=== PATIENT | male | born 1995 | race Caucasian/White ===

== ENCOUNTER 2019-02-12 14:26 | Emergency (ER) | payer OTHER, SELFPAY ==
[2019-02-12 14:38] VITALS: BP 131/99; PULSE 100; RESP 18; TEMP 36.4; O2SAT 99; BMI 30.4
[2019-02-12] MEDS: LIDOCAINE 1% W/EPI 1 ML SUBCUT (16:07)
[2019-02-12 16:39] VITALS: BP 129/88; PULSE 92; RESP 17; O2SAT 98
[2019-02-12] MEDS: IBUPROFEN 400 MG TABLET 800 MG PO (16:56)
[2019-02-12] MEDS: cephALEXin 250 MG CAPSULE 500 MG PO (16:56)
--- NOTE | 2019-02-12 17:48 | ED.SKABFB ---
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 Patient noticed a small red bump on right groin on Sunday which has progressively got worsen since Sunday morning. Patient denies fever, chills, nausea or vomiting. Patient reports very painful. Patient was referred by [facility] to ED for on assessment and treatment. Patient had left-sided groin abscess about 2 years ago which had to be I&D and packed. Patient does shave his groin. Patient denies chronic medical problems including diabetes. Related Data Home Medications Medication Instructions Recorded Confirmed acetaminophen [Tylenol] 650 mg PO Q4-6H PRN 02/12/19 02/12/19 Previous Rx's Medication Instructions Recorded cephalexin [Keflex] 500 mg PO Q6H 10 Days #40 cap 02/12/19 tramadol 50 - 100 mg PO Q12H PRN #10 tab 02/12/19 Allergies Allergy/AdvReac Type Severity Reaction Status Date / Time Sulfa (Sulfonamide Allergy Unknown Verified 02/12/19 14:42 Antibiotics) Review of Systems <CONCEPCIÓN Chance - Last Filed: 02/12/19 22:13> Review of Systems Narrative: General: Denies fever, chills, fatigue, malaise, sweats. HEENT: Denies sinus pain, ear pain, sore throat, difficulty swallowing, dizziness. Respiratory: Denies dyspnea, cough, wheezing, hemoptysis, sputum. Cardiovascular: Denies chest pain, palpitations, orthopnea, edema. Gastrointestinal: Denies nausea, vomiting, abdominal pain, diarrhea, constipation, melena. : Denies dysuria, frequency, incontinence, hematuria, urinary retention. Musculoskeletal: Denies weakness, joint pain or bony pain. Skin: See HPI Neurologic: Denies weakness, headache, numbness, change in speech, confusion, seizures, incoordination. Psychiatric: No concerning psychosocial issues. 12-point review of systems is negative except for those stated above. Patient History <CONCEPCIÓN Chance - Last Filed: 02/12/19 22:13> Medical History Abscess of left groin (Acute) Surgical History No pertinent past surgical history (Acute) Social History Smoking Status: Former smoker Smoking Status: Former smoker tobacco type: vaping alcohol intake frequency: a few times a month Substance Use Type: does not use Exam <CONCEPCIÓN Chance - Last Filed: 02/12/19 22:13> Narrative Exam Narrative: General appearance: well developed, well nourished, in no acute distress. Head: normocephalic, atraumatic, no scalp lesions, non-tender. ENT: Bilateral auditory canals and tympanic membranes clear. Hearing grossly intact. Nose without bleeding, purulent discharge, septal hematoma or deviation. Turbinate without erythema or swelling. Facial sinuses nontender to palpate. Mucous membrane moist, no mucosal lesion. Throat without erythema, tonsillar hypertrophy or exudate. Uvula in midline, airway patent. Neck/Thyroid: neck supple, full range of motion, no visible masses or meningeal signs. No JVD, non-tender without lymphadenopathy. Heart: no clubbing, no cyanosis, no edema. S1 and S2 normal. RRR w/o murmurs, clicks, or bruits. Lungs: Breathing even and unlabored. No stridor. No accessory muscles used. Able to speak in full sentences. Chest: normal shape and expansion. Abdomen: non-obese, non-distended. Neurologic: alert and oriented. 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 Psych: good eye contact, normal affect. Initial Vital Signs Initial Vital Signs: Vital Signs Temperature 97.6 F 02/12/19 14:38 Pulse Rate 100 H 02/12/19 14:38 Respiratory Rate 18 02/12/19 14:38 Blood Pressure 131/99 H 02/12/19 14:38 Pulse Oximetry 99 02/12/19 14:38 Skin General: erythema, fluctuance, hypertrophy, induration, warm and other (Very tender to palpate) Lesions: lesion noted (Right groin) <Yara Zimmer DO - Last Filed: 02/17/19 08:38> Initial Vital Signs Initial Vital Signs: Vital Signs Temperature 97.6 F 02/12/19 14:38 Pulse Rate 100 H 02/12/19 14:38 Respiratory Rate 18 02/12/19 14:38 Blood Pressure 131/99 H 02/12/19 14:38 Pulse Oximetry 99 02/12/19 14:38 Procedures <CONCEPCIÓN Chance - Last Filed: 02/12/19 22:13> Abscess I/D I&D #1: Site: lower extremity (Right groin) Side (if applicable): right Local Anesthetic: lidocaine 1% and with epi Amount of anesthesia used (mL): 5 Technique: incised with #11 blade Amount of fluid expressed (mL): 3 Irrigation: Yes Packing used?: plain Scores <CONCEPCIÓN Chance - Last Filed: 02/12/19 22:13> GCS [place] coma scale eye opening: Spontaneous Kelly coma scale verbal response: Orientated Kelly coma scale motor response: Obey commands Let[place]worth coma scale total score: 15 Course <CONCEPCIÓN Chance - Last Filed: 02/12/19 22:13> Orders Ordered: Discontinued Medications Cephalexin HCl (Keflex) 500 mg PO NOW ONE Stop: 02/12/19 16:34 Last Admin: 02/12/19 16:56 Dose: 500 mg Documented by: HARRY Ibuprofen (Advil) 800 mg PO NOW ONE Stop: 02/12/19 16:34 Last Admin: 02/12/19 16:56 Dose: 800 mg Documented by: HARRY Lidocaine/Epinephrine (Xylocaine 1% W/Epi) 1 ml SUBCUT NOW ONE Stop: 02/12/19 15:53 Last Admin: 02/12/19 16:07 Dose: 1 ml Documented by: BRISA Vital Signs Vital signs: Vital Signs - 8 hr 02/12/19 14:38 02/12/19 16:39 Temperature 97.6 F Pulse Rate 100 H 92 H Respiratory Rate 18 17 Blood Pressure 131/99 H Blood Pressure [Right Arm] 129/88 Pulse Oximetry 99 98 <Yara Zimmer DO - Last Filed: 02/17/19 08:38> Orders Ordered: Discontinued Medications Cephalexin HCl (Keflex) 500 mg PO NOW ONE Stop: 02/12/19 16:34 Last Admin: 02/12/19 16:56 Dose: 500 mg Documented by: HARRY Ibuprofen (Advil) 800 mg PO NOW ONE Stop: 02/12/19 16:34 Last Admin: 02/12/19 16:56 Dose: 800 mg Documented by: HARRY Lidocaine/Epinephrine (Xylocaine 1% W/Epi) 1 ml SUBCUT NOW ONE Stop: 02/12/19 15:53 Last Admin: 02/12/19 16:07 Dose: 1 ml Documented by: BRISA Vital Signs Vital signs: Vital Signs - 8 hr 02/12/19 14:38 02/12/19 16:39 Temperature 97.6 F Pulse Rate 100 H 92 H Respiratory Rate 18 17 Blood Pressure 131/99 H Blood Pressure [Right Arm] 129/88 Pulse Oximetry 99 98 MDM - Skin/Abscess/Foreign Bdy <CONCEPCIÓN Chance - Last Filed: 02/12/19 22:13> Differential Diagnosis Differential diagnosis: Likely abscess of skin or subcutaneous tissue and cellulitis Medical Records Attestation: I reviewed the patient's medical records. MDM Narrative Medical decision making narrative: This is a 23 year old active [employer] personnel who presents to ED after he was referred from [facility] for about 7 cm right groin abscess evaluation and treatment. Patient denies constitutional symptoms. Right groin has fluctuance with induration, very tender to palpate, edema, and erythema. Right groin has already started draining with purulent and sanguinous discharge during assessment and palpation. The affected site was locally anesthetized, small incisions were made and express a drained purulent discharge. Please see procedural note. Wound culture is pending. Patient was medicated with Keflex 500 mg and Rx for q.i.d. dose for 10 days provided for coverage for cellulitis with abscess. Patient provided with tramadol for pain management and discussed narcotic medication precautions. Patient advised to use warm pack frequently next couple of days to help with drainage. Return precautions were discussed with the patient. Work off note provided for 2 days. Patient advised to follow up with PCP in 1-2 days for reassessment and wound care. Patient verbalized understanding and agrees with the treatment plan. Discharge Plan Departure Patient Disposition: Home Clinical Impression: Abscess of skin or subcutaneous tissue Qualifiers: Site of cutaneous abscess: extremity Site of cutaneous abscess of extremity: lower extremity Laterality: right Qualified Code(s): L02.415 - Cutaneous abscess of right lower limb Cellulitis Qualifiers: Site of cellulitis: extremity Site of cellulitis of extremity: lower extremity Laterality: right Qualified Code(s): L03.115 - Cellulitis of right lower limb Discharge Date/Time: 02/12/19 17:16 Instructions: DI for Cellulitis -- Adult, DI for Skin Abscess Activity Restrictions/Additional Instructions: You have been diagnosed with [right groin abscess and cellulitis. The area has been I&D and packed with plain packing material. ]. What to do: *Take your medications as directed. You were medicated with 1st dose of Keflex while in the ED. please take tramadol for severe pain. This may cause drowsiness so please take precaution such as not driving, drinking alcohol or operating heavy equipments. You can take [id number] Tylenol up to 4000 mg in 24 hour period. Ibuprofen 600-800 mg 3 times a day with food for pain and inflammation. Please continue with Keflex 4 times a day for next 10 days. *Follow up with your primary care provider in 1-2 days, call for an appointment. Let them know you were seen in the ED and that we asked you to be seen in follow up and repacking and wound care. *Return to ED if you have any new, worsening, or concerning symptoms, such as [fever, chills, unable to tolerate fluids, chest pain, breathing difficulty, any acute concerns. Work off note has been provided.]. Prescriptions: New cephalexin [Keflex] 500 mg capsule 500 mg PO Q6H 10 Days Qty: 40 RF: 0 tramadol 50 mg tablet 50 - 100 mg PO Q12H PRN (Reason: pain) Qty: 10 RF: 0 No Action acetaminophen [Tylenol] 325 mg Tablet 650 mg PO Q4-6H PRN (Reason: pain) RF: 0 Referrals: [facility] [Outside] Stand Alone Forms: Work Release Note
== END 2019-02-12 17:16 | disposition home or self-care (01) ==
PROVIDERS: Emergency Provider Nurse Practitioner Family
DX: L02.415 Cutaneous abscess of right lower limb (principal); L03.115 Cellulitis of right lower limb
CPT/HCPCS: 10060; 87070; 87075; 87077; 87147; 87186; 87205; 99283; 99284

== ENCOUNTER 2019-03-04 19:28 | Emergency (ER) | payer OTHER, SELFPAY ==
[2019-03-04 19:30] VITALS: BP 134/92; PULSE 75; RESP 14; TEMP 36.9; O2SAT 99; BMI 30.4
--- NOTE | 2019-03-04 19:45 | PC.NURSE ---
Pt given food and beverage with warm blankeet
[2019-03-04 19:57] LABS: Add Manual Diff / Slide Review NO; Basophils Absolute Auto 100 /uL (0-100); Basophils Percent Auto 1.4 % (0-2); Eosinophils Absolute Auto 100 /uL (0-450); Eosinophils Percent Auto 2.1 % (2-4); Hematocrit 44.8 % (41-53); Hemoglobin 15.5 g/dL (13.5-17.5); Lymphocytes Absolute Auto 2200 /uL (1100-4500); Lymphocytes Percent Auto 39.8 % (25-40); Mean Corpuscular HGB Conc 34.6 % (30-36); Mean Corpuscular Volume 80.8 fL (80-100); Monocytes Absolute Auto 400 /uL (0-900); Monocytes Percent Auto 6.9 % (3-14); Neutrophils Absolute Auto 2800 /uL (1500-7000); Neutrophils Percent Auto 49.8 % (50-75); Platelet Count 323 X10^3/uL (150-400); Red Blood Cell Count 5.55 X10^6/uL (4.5-5.9); Red Cell Distribution Width 12.8 % (11.6-14.8); White Blood Cell Count 5.6 X10^3/uL (4.5-11.0)
--- NOTE | 2019-03-04 20:11 | ED_ITS ---
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 Patient has no prior medical history. No prior mental health history. Is not . No kids. Lives on his own. Has been in the [employer] for the past several years. He states that for the past year so he has had some depression. Does not attributed to anything specific. He he states that he has times where these depression symptoms are worse than others. He states he has had fleeting thoughts of suicide in the past. Specifically jumping [place]. He states that he never seriously considered doing it however over the past several days/weeks he feels that these suicidal/depressive thoughts have become more invasive. He states he spends most of his day thinking about them or trying to not think about them. He has no specific plan currently. Denies any drug or alcohol use. Went to his medical imaging technician today for evaluation of a was initially insomnia however upon further questioning patient did express to his medical imaging technician about the suicidal thoughts. Patient arrives today with a command used equipment sales representative however he is voluntary. He states that he feels very concerned about these thoughts. He states that he just wants to feel ?normal? again. Related Data Home Medications Medication Instructions Recorded Confirmed acetaminophen [Tylenol] 650 mg PO Q4-6H PRN 02/12/19 02/12/19 Previous Rx's Medication Instructions Recorded tramadol 50 - 100 mg PO Q12H PRN #10 tab 02/12/19 Allergies Allergy/AdvReac Type Severity Reaction Status Date / Time Sulfa (Sulfonamide Allergy Unknown Verified 03/04/19 19:53 Antibiotics) Review of Systems Constitutional Constitutional: Denies headache(s) ENT Ears, Nose, Mouth, and Throat: Denies headache(s) Cardiovascular Cardiovascular: Denies chest pain and Denies dyspnea Respiratory Respiratory: Denies dyspnea Gastrointestinal Gastrointestinal: Denies abdominal pain Musculoskeletal Musculoskeletal: Denies myalgias and Denies arthralgias Integumentary/Breasts Skin/Breast: Denies lesions and Denies rash Neurologic Neurologic: Denies behavioral changes and Denies headache(s) Psychiatric Psychiatric: Denies behavioral changes, Reports depression, Reports hopelessness and Reports suicidal ideation Hematologic/Lymphatic Hematologic/Lymphatic: Denies easy bleeding and Denies easy bruising Patient History Medical History Abscess of left groin (Acute) Social History Smoking Status: Former smoker Smoking Status: Former smoker tobacco type: vaping alcohol intake frequency: holidays/special occasions only Substance Use Type: does not use Exam Initial Vital Signs Initial Vital Signs: Vital Signs Temperature 98.4 F 03/04/19 19:30 Pulse Rate 75 03/04/19 19:30 Respiratory Rate 14 03/04/19 19:30 Blood Pressure 134/92 H 03/04/19 19:30 Pulse Oximetry 99 03/04/19 19:30 Const General: cooperative and comfortable Limitations: mental status not altered HENMT Head: normal to inspection and normocephalic Resp Effort & Inspection: normal respiratory effort Auscultation: clear to auscultation bilaterally Cardio Rate: regular rate Rhythm: regular rhythm GI Inspection: non-distended Palpation: soft Skin Lesions: no lesions Rashes: no rashes Neuro General: alert, awake and oriented x3 Extrem General: normal to inspection and capillary refill normal Psych Appearance: grossly normal and well kempt Mental Status: other Speech and Movement: speech and movement normal Mood: No angry and other Affect: sad and blunted Attitude: cooperative Thought Process: normal Thought Content: suicidality Course Orders Ordered: ED Orders 03/04/19 19:50 Acetaminophen Stat Complete Blood Count AUTO DIFF Stat Comprehensive Metabolic Panel Stat Ethanol (ETOH) Stat Lipase Stat Salicylate Stat Thyroid Stimulating Hormone Stat 03/04/19 20:27 Urine Drug Screen, Rapid Stat Vital Signs Vital signs: Vital Signs - 8 hr 03/04/19 19:30 Temperature 98.4 F Pulse Rate 75 Respiratory Rate 14 Blood Pressure 134/92 H Pulse Oximetry 99 MDM - Psych Lab Data Attestation: I reviewed the patient's lab results. Result diagrams: 03/04/19 19:50 03/04/19 19:50 Labs: Lab Results 03/04/19 03/04/19 03/04/19 Range/Units 19:50 19:50 19:50 WBC 5.6 (4.5-11.0) X10^3/uL RBC 5.55 (4.5-5.9) X10^6/uL Hgb 15.5 (13.5-17.5) g/dL Hct 44.8 (41-53) % MCV 80.8 (80-100) fL MCH 28.0 (26-34) PG MCHC 34.6 (30-36) % RDW 12.8 (11.6-14.8) % Plt Count 323 (150-400) X10^3/uL Neut % (Auto) 49.8 L (50-75) % Lymph % (Auto) 39.8 (25-40) % [place] % (Auto) 6.9 (3-14) % Eos % (Auto) 2.1 (2-4) % Baso % (Auto) 1.4 (0-2) % Neut # (Auto) 2800 (1154-6702) /uL Lymph # (Auto) 2200 (4901-8754) /uL [place] # (Auto) 400 (0-900) /uL Eos # (Auto) 100 (0-450) /uL Baso # (Auto) 100 (0-100) /uL Sodium 142 (137-145) mmol/L Potassium 4.1 (3.4-5.1) mmol/L Chloride 101 (98-107) mmol/L Carbon Dioxide 28 (22-32) mmol/L BUN 15 (9-20) mg/dL Creatinine 1.10 (0.66-1.25) mg/dL Estimated GFR > 60.0 (>60) mL/min BUN/Creatinine Ratio 13.6 (6-22) Glucose 91 (70-100) mg/dL Calcium 10.1 (8.4-10.2) mg/dL Total Bilirubin 0.9 (0.2-1.3) mg/dL AST 89 H (17-59) IU/L ALT 256 H (<50) IU/L Alkaline Phosphatase 88 (38-126) U/L Total Protein 8.7 H (6.3-8.2) g/dL Albumin 4.9 (3.5-5.0) g/dL Globulin 3.8 (1.7-4.1) g/dL Albumin/Globulin Ratio 1.3 (1.0-2.8) Lipase 70 (23-300) U/L TSH 2.88 (0.47-4.68) uIU/mL Salicylates < 1.0 (<20) mg/dL U Opiates 300ng/mL cut (Negative) Ur Oxycodone Screen (Negative) Urine Methadone Screen (Negative) Acetaminophen < 10 L (10-30) ug/mL Ur Barbiturates Screen (Negative) U Tricyclic Antidepress (Negative) Ur Phencyclidine Scrn (Negative) Ur Amphetamines Screen (Negative) U Methamphetamines Scrn (Negative) Ur MDMA Scrn (Ecstasy) (Negative) U Benzodiazepines Scrn (Negative) Urine Cocaine Screen (Negative) U Marijuana (THC) Screen (Negative) Ethyl Alcohol < 10 ( - 10) mg/dL 03/04/19 Range/Units 20:27 WBC (4.5-11.0) X10^3/uL RBC (4.5-5.9) X10^6/uL Hgb (13.5-17.5) g/dL Hct (41-53) % MCV (80-100) fL MCH (26-34) PG MCHC (30-36) % RDW (11.6-14.8) % Plt Count (150-400) X10^3/uL Neut % (Auto) (50-75) % Lymph % (Auto) (25-40) % [place] % (Auto) (3-14) % Eos % (Auto) (2-4) % Baso % (Auto) (0-2) % Neut # (Auto) (6411-3514) /uL Lymph # (Auto) (6302-9959) /uL [place] # (Auto) (0-900) /uL Eos # (Auto) (0-450) /uL Baso # (Auto) (0-100) /uL Sodium (137-145) mmol/L Potassium (3.4-5.1) mmol/L Chloride (98-107) mmol/L Carbon Dioxide (22-32) mmol/L BUN (9-20) mg/dL Creatinine (0.66-1.25) mg/dL Estimated GFR (>60) mL/min BUN/Creatinine Ratio (6-22) Glucose (70-100) mg/dL Calcium (8.4-10.2) mg/dL Total Bilirubin (0.2-1.3) mg/dL AST (17-59) IU/L ALT (<50) IU/L Alkaline Phosphatase (38-126) U/L Total Protein (6.3-8.2) g/dL Albumin (3.5-5.0) g/dL Globulin (1.7-4.1) g/dL Albumin/Globulin Ratio (1.0-2.8) Lipase (23-300) U/L TSH (0.47-4.68) uIU/mL Salicylates (<20) mg/dL U Opiates 300ng/mL cut Negative (Negative) Ur Oxycodone Screen Negative (Negative) Urine Methadone Screen Negative (Negative) Acetaminophen (10-30) ug/mL Ur Barbiturates Screen Negative (Negative) U Tricyclic Antidepress Negative (Negative) Ur Phencyclidine Scrn Negative (Negative) Ur Amphetamines Screen Negative (Negative) U Methamphetamines Scrn Negative (Negative) Ur MDMA Scrn (Ecstasy) Negative (Negative) U Benzodiazepines Scrn Negative (Negative) Urine Cocaine Screen Negative (Negative) U Marijuana (THC) Screen Negative (Negative) Ethyl Alcohol ( - 10) mg/dL MDM Narrative Medical decision making narrative: Patient is medically cleared. Discussed the case with Dr. Travis at [facility] who accepts the patient in transfer. The patient is voluntary. His command is with him. He will be discharged to his [facility] care to be transferred by private vehicle. Discharge Plan Departure Patient Disposition: [facility] Clinical Impression: Depression Qualifiers: Depression Type: unspecified Qualified Code(s): F32.9 - Major depressive disorder, single episode, unspecified Prescriptions: No Action acetaminophen [Tylenol] 325 mg Tablet 650 mg PO Q4-6H PRN (Reason: pain) RF: 0 tramadol 50 mg tablet 50 - 100 mg PO Q12H PRN (Reason: pain) Qty: 10 RF: 0
[2019-03-04 20:18] LABS: Acetaminophen < 10 ug/mL (10-30); Alanine Aminotransferase 256 IU/L (<50); Albumin 4.9 g/dL (3.5-5.0); Albumin Globulin Ratio 1.3 (1.0-2.8); Alkaline Phosphatase 88 U/L (38-126); Aspartate Aminotransferase 89 IU/L (17-59); BUN Creatinine Ratio 13.6 (6-22); Bilirubin Total 0.9 mg/dL (0.2-1.3); Blood Urea Nitrogen 15 mg/dL (9-20); Calcium 10.1 mg/dL (8.4-10.2); Carbon Dioxide 28 mmol/L (22-32); Chloride 101 mmol/L (98-107); Estimated Glomerular Filt Rate > 60.0 mL/min (>60); Ethanol (ETOH) < 10 mg/dL; Globulin 3.8 g/dL (1.7-4.1); Glucose 91 mg/dL (70-100); HEMOLYSIS 35 (0-50); Lipase 70 U/L (23-300); Potassium 4.1 mmol/L (3.4-5.1); Salicylate < 1.0 mg/dL (<20); Sodium 142 mmol/L (137-145); Total Protein 8.7 g/dL (6.3-8.2)
[2019-03-04 20:34] LABS: Ur Creatinine Normal (Normal); Ur Specific Gravity Normal (Normal); Urine pH Normal (Normal)
[2019-03-04 20:35] LABS: UR Morphine/Opiate cutoff 300 Negative (Negative); Urine Amphetamines Negative (Negative); Urine Barbiturates Negative (Negative); Urine Benzodiazepines Negative (Negative); Urine Cocaine Negative (Negative); Urine MDMA Negative (Negative); Urine Methadone Negative (Negative); Urine Methamphetamines Negative (Negative); Urine Oxycodone Negative (Negative); Urine Phencyclidine Negative (Negative); Urine Tetrahydrocannabinol Negative (Negative); Urine Tricyclic Antidepressant Negative (Negative)
[2019-03-04 20:53] LABS: Thyroid Stimulating Hormone 2.88 uIU/mL (0.47-4.68)
[2019-03-04 22:09] VITALS: BP 131/89; PULSE 67; RESP 16; TEMP 37; O2SAT 99
== END 2019-03-04 22:09 | disposition short-term general hospital (02) ==
PROVIDERS: Emergency Provider Emergency Medicine
DX: F32.9 Major depressive disorder, single episode, unspecified (principal)
CPT/HCPCS: 36415; 80053; 80305; 80320; 80329; 83690; 84443; 85025; 99283; 99284; G0480

== ENCOUNTER 2019-03-27 13:45 | Emergency (ER) | payer OTHER, SELFPAY ==
[2019-03-27 13:52] VITALS: BP 139/96; PULSE 85; RESP 14; TEMP 36.5; O2SAT 98; BMI 28.8
--- NOTE | 2019-03-27 14:27 | PC.NURSE ---
ANTONIA Logan at bedside
--- NOTE | 2019-03-27 14:33 | ED_ITS ---
HPI - Psych <KELLI Boyd - Last Filed: 03/27/19 19:36> General Chief Complaint: Psychiatric Symptoms Stated Complaint: Suicidal ideation Time Seen by Provider: 03/27/19 14:12 Source: patient Mode of arrival: Ambulatory Limitations: no limitations History of Present Illness HPI Narrative: The patient is a 23-year-old male former smoker with history of depression who presents with a chief complaint suicidal ideations. He states he is feeling suicidal as he is having trouble [place] He was at this facility approximately 1 month ago similar complaints. He states he is having passive thoughts about [place], and was today on his way to an appointment. He was not sure if he should go to the appointment or go kill himself. He does not take any antidepressants, he states he is drinking more alcohol lately, no drug use. No hallucinations. Related Data Home Medications Medication Instructions Recorded Confirmed acetaminophen [Tylenol] 650 mg PO Q4-6H PRN 02/12/19 03/27/19 melatonin 3 mg PO BEDTIME PRN 03/27/19 03/27/19 Allergies Allergy/AdvReac Type Severity Reaction Status Date / Time Sulfa (Sulfonamide Allergy Unknown Verified 03/27/19 13:52 Antibiotics) Review of Systems <KELLI Boyd - Last Filed: 03/27/19 19:36> Review of Systems Narrative: GENERAL: Denies chills, fatigue, malaise, fever, sweats. HEENT: Denies sinus pain, ear pain, sore throat, difficulty swallowing, dizz iness. RESPIRATORY: Denies dyspnea, cough, wheezing, hemoptysis, sputum. CARDIOVASCULAR: Denies chest pain, palpitations, orthopnea, edema, GASTROINTESTINAL: Denies nausea, vomiting, abdominal pain, diarrhea, constipation, melena. : Denies dysuria, frequency, incontinence, hematuria, urinary retention. MUSCULOSKELETAL: denies weakness, joint pain, or bony pain SKIN: Denies rash, skin lesions, or other NEUROLOGIC: Denies weakness, headache, numbness, change in speech, confusion, seizures, incoordination. PSYCHIATRIC: See HPI 12 point review of systems is negative except for those stated above Patient History <KELLI Boyd - Last Filed: 03/27/19 19:36> Social History Smoking Status: Former smoker Smoking Status: Former smoker tobacco type: vaping alcohol intake frequency: 3 or more drinks per day Alcohol type: beer Substance Use Type: does not use Exam <CRYSTAL Boyd - Last Filed: 03/27/19 19:36> Narrative Exam Narrative: GENERAL: This is a well-nourished, well-developed patient, in no acute distress HEAD: Atraumatic. Normocephalic. No temporal or scalp tenderness. EYES: Pupils equal round and reactive. Extraocular motions intact. No scleral icterus. No injection or drainage. ENT: Nose without bleeding, purulent drainage or septal hematoma. Throat without erythema, tonsillar hypertrophy or exudate. Uvula midline. Airway patent. NECK: Trachea midline. No JVD or lymphadenopathy. Supple, nontender, no meningeal signs. CARDIOVASCULAR: Regular rate and rhythm RESPIRATORY: No cough. No increased respiratory effort. No accessory muscle u se. EXTREMITIES: No clubbing, cyanosis, or edema. No joint tenderness, effusion, or edema noted. BACK: Nontender without deformity or crepitance. No flank tenderness. NEURO: AOx3. Withdrawn. Complaining suicidal ideations. SKIN: No rash or erythema. Initial Vital Signs Initial Vital Signs: Vital Signs Temperature 97.7 F 03/27/19 13:52 Pulse Rate 85 03/27/19 13:52 Respiratory Rate 14 03/27/19 13:52 Blood Pressure 139/96 H 03/27/19 13:52 Pulse Oximetry 98 03/27/19 13:52 <Puma Cardenas DO - Last Filed: 03/27/19 19:38> Initial Vital Signs Initial Vital Signs: Vital Signs Temperature 97.7 F 03/27/19 13:52 Pulse Rate 85 03/27/19 13:52 Respiratory Rate 14 03/27/19 13:52 Blood Pressure 139/96 H 03/27/19 13:52 Pulse Oximetry 98 03/27/19 13:52 Course <CRYSTAL Boyd - Last Filed: 03/27/19 19:36> Orders Ordered: ED Orders 03/27/19 14:12 Consult to DIRECTOR OF STRATEGIC MARKETING - Waste Treatment Operator Urgent 03/27/19 14:55 Acetaminophen Stat Complete Blood Count AUTO DIFF Stat Comprehensive Metabolic Panel Stat Ethanol (ETOH) Stat Salicylate Stat Thyroid Stimulating Hormone Stat 03/27/19 16:50 Urine Drug Screen, Rapid Stat Vital Signs Vital signs: Vital Signs - 8 hr 03/27/19 13:52 03/27/19 17:29 Temperature 97.7 F Pulse Rate 85 71 Respiratory Rate 14 16 Blood Pressure 139/96 H Blood Pressure [Left Arm] 138/91 H Pulse Oximetry 98 98 <Puma Cardenas DO - Last Filed: 03/27/19 19:38> Orders Ordered: ED Orders 03/27/19 14:12 [place] [facility] [place] Waste Treatment Operator Urgent 03/27/19 14:55 Acetaminophen Stat Complete Blood Count AUTO DIFF Stat Comprehensive Metabolic Panel Stat Ethanol (ETOH) Stat Salicylate Stat Thyroid Stimulating Hormone Stat 03/27/19 16:50 Urine Drug Screen, Rapid Stat Vital Signs Vital signs: Vital Signs - 8 hr 03/27/19 13:52 03/27/19 17:29 Temperature 97.7 F Pulse Rate 85 71 Respiratory Rate 14 16 Blood Pressure 139/96 H Blood Pressure [Left Arm] 138/91 H Pulse Oximetry 98 98 MDM - Psych <CHERELLE Boyd-BC - Last Filed: 03/27/19 19:36> Lab Data Result diagrams: 03/27/19 14:55 03/27/19 14:55 Labs: Lab Results 03/27/19 03/27/19 03/27/19 Range/Units 14:55 14:55 14:55 WBC 5.2 (4.5-11.0) X10^3/uL RBC 5.63 (4.5-5.9) X10^6/uL Hgb 15.8 (13.5-17.5) g/dL Hct 45.2 (41-53) % MCV 80.3 (80-100) fL MCH 28.1 (26-34) PG MCHC 35.0 (30-36) % RDW 13.0 (11.6-14.8) % Plt Count 265 (150-400) X10^3/uL Neut % (Auto) 45.4 L (50-75) % Lymph % (Auto) 41.7 H (25-40) % [place] % (Auto) 8.8 (3-14) % Eos % (Auto) 3.2 (2-4) % Baso % (Auto) 0.9 (0-2) % Neut # (Auto) 2400 (3722-6661) /uL Lymph # (Auto) 2200 (9423-2462) /uL [place] # (Auto) 500 (0-900) /uL Eos # (Auto) 200 (0-450) /uL Baso # (Auto) 0 (0-100) /uL Sodium 140 (137-145) mmol/L Potassium 4.1 (3.4-5.1) mmol/L Chloride 101 (98-107) mmol/L Carbon Dioxide 29 (22-32) mmol/L BUN 12 (9-20) mg/dL Creatinine 1.00 (0.66-1.25) mg/dL Estimated GFR > 60.0 (>60) mL/min BUN/Creatinine Ratio 12.0 (6-22) Glucose 88 (70-100) mg/dL Calcium 10.2 (8.4-10.2) mg/dL Total Bilirubin 0.5 (0.2-1.3) mg/dL AST 40 (17-59) IU/L ALT 59 H (<50) IU/L Alkaline Phosphatase 83 (38-126) U/L Total Protein 8.5 H (6.3-8.2) g/dL Albumin 4.9 (3.5-5.0) g/dL Globulin 3.6 (1.7-4.1) g/dL Albumin/Globulin Ratio 1.4 (1.0-2.8) TSH 3.16 (0.47-4.68) uIU/mL Salicylates < 1.0 (<20) mg/dL U Opiates 300ng/mL cut (Negative) Ur Oxycodone Screen (Negative) Urine Methadone Screen (Negative) Acetaminophen < 10 L (10-30) ug/mL Ur Barbiturates Screen (Negative) U Tricyclic Antidepress (Negative) Ur Phencyclidine Scrn (Negative) Ur Amphetamines Screen (Negative) U Methamphetamines Scrn (Negative) Ur MDMA Scrn (Ecstasy) (Negative) U Benzodiazepines Scrn (Negative) Urine Cocaine Screen (Negative) U Marijuana (THC) Screen (Negative) Ethyl Alcohol < 10 ( - 10) mg/dL 03/27/19 Range/Units 16:50 WBC (4.5-11.0) X10^3/uL RBC (4.5-5.9) X10^6/uL Hgb (13.5-17.5) g/dL Hct (41-53) % MCV (80-100) fL MCH (26-34) PG MCHC (30-36) % RDW (11.6-14.8) % Plt Count (150-400) X10^3/uL Neut % (Auto) (50-75) % Lymph % (Auto) (25-40) % [place] % (Auto) (3-14) % Eos % (Auto) (2-4) % Baso % (Auto) (0-2) % Neut # (Auto) (0803-5640) /uL Lymph # (Auto) (9626-8207) /uL [place] # (Auto) (0-900) /uL Eos # (Auto) (0-450) /uL Baso # (Auto) (0-100) /uL Sodium (137-145) mmol/L Potassium (3.4-5.1) mmol/L Chloride (98-107) mmol/L Carbon Dioxide (22-32) mmol/L BUN (9-20) mg/dL Creatinine (0.66-1.25) mg/dL Estimated GFR (>60) mL/min BUN/Creatinine Ratio (6-22) Glucose (70-100) mg/dL Calcium (8.4-10.2) mg/dL Total Bilirubin (0.2-1.3) mg/dL AST (17-59) IU/L ALT (<50) IU/L Alkaline Phosphatase (38-126) U/L Total Protein (6.3-8.2) g/dL Albumin (3.5-5.0) g/dL Globulin (1.7-4.1) g/dL Albumin/Globulin Ratio (1.0-2.8) TSH (0.47-4.68) uIU/mL Salicylates (<20) mg/dL U Opiates 300ng/mL cut Negative (Negative) Ur Oxycodone Screen Negative (Negative) Urine Methadone Screen Negative (Negative) Acetaminophen (10-30) ug/mL Ur Barbiturates Screen Negative (Negative) U Tricyclic Antidepress Negative (Negative) Ur Phencyclidine Scrn Negative (Negative) Ur Amphetamines Screen Negative (Negative) U Methamphetamines Scrn Negative (Negative) Ur MDMA Scrn (Ecstasy) Negative (Negative) U Benzodiazepines Scrn Negative (Negative) Urine Cocaine Screen Negative (Negative) U Marijuana (THC) Screen Negative (Negative) Ethyl Alcohol ( - 10) mg/dL Urine Dip Bedside Urine Glucose Negative Bedside Urine Bilirubin - Negative Bedside Urine Ketone - Negative Urine Specific [place] 1.015 Bedside Urine Occult Blood - Negative Bedside Urine pH 6.0 Bedside Urine Protein - Negative Bedside Urine Urobilinogen - Negative Bedside Urine Nitrite - Negative Bedside Urine Leukocytes - Negative Esterase MDM Narrative Medical decision making narrative: The patient is a 23-year-old male who presents for chief complaint of suicidal ideation and thoughts of [place]. He initially presented requesting transfer to [facility] however during his emergency department stay received a call from his CO stating that separation would be approved. He felt much better after this phone call. He was evaluated by nurse keycase assembler, who states that she feels as though the patient is safe to discharge as he is no longer feeling suicidal given his recent phone call. He was able to safety plan, currently denies any with suicidal if he marc. He has a the safety plan, state that his friend Jose Roberto will stay overnight with him. Jose Roberto to confirm this. The patient denies any weapons at his house, states that he will give his bayonet to his friend. He insist that he can be safe at home and will come back to the emergency department if he feels unsafe. He was given crisis contact information. Patient in for and have no questions or concerns upon discharge state understanding return precautions as well as follow-up care. State understanding of safety plan. <Puma Cardenas, DO - Last Filed: 03/27/19 19:38> Lab Data Labs: Lab Results 03/27/19 03/27/19 03/27/19 Range/Units 14:55 14:55 14:55 WBC 5.2 (4.5-11.0) X10^3/uL RBC 5.63 (4.5-5.9) X10^6/uL Hgb 15.8 (13.5-17.5) g/dL Hct 45.2 (41-53) % MCV 80.3 (80-100) fL MCH 28.1 (26-34) PG MCHC 35.0 (30-36) % RDW 13.0 (11.6-14.8) % Plt Count 265 (150-400) X10^3/uL Neut % (Auto) 45.4 L (50-75) % Lymph % (Auto) 41.7 H (25-40) % [place] % (Auto) 8.8 (3-14) % Eos % (Auto) 3.2 (2-4) % Baso % (Auto) 0.9 (0-2) % Neut # (Auto) 2400 (1255-6220) /uL Lymph # (Auto) 2200 (8865-9045) /uL [place] # (Auto) 500 (0-900) /uL Eos # (Auto) 200 (0-450) /uL Baso # (Auto) 0 (0-100) /uL Sodium 140 (137-145) mmol/L Potassium 4.1 (3.4-5.1) mmol/L Chloride 101 (98-107) mmol/L Carbon Dioxide 29 (22-32) mmol/L BUN 12 (9-20) mg/dL Creatinine 1.00 (0.66-1.25) mg/dL Estimated GFR > 60.0 (>60) mL/min BUN/Creatinine Ratio 12.0 (6-22) Glucose 88 (70-100) mg/dL Calcium 10.2 (8.4-10.2) mg/dL Total Bilirubin 0.5 (0.2-1.3) mg/dL AST 40 (17-59) IU/L ALT 59 H (<50) IU/L Alkaline Phosphatase 83 (38-126) U/L Total Protein 8.5 H (6.3-8.2) g/dL Albumin 4.9 (3.5-5.0) g/dL Globulin 3.6 (1.7-4.1) g/dL Albumin/Globulin Ratio 1.4 (1.0-2.8) TSH 3.16 (0.47-4.68) uIU/mL Salicylates < 1.0 (<20) mg/dL U Opiates 300ng/mL cut (Negative) Ur Oxycodone Screen (Negative) Urine Methadone Screen (Negative) Acetaminophen < 10 L (10-30) ug/mL Ur Barbiturates Screen (Negative) U Tricyclic Antidepress (Negative) Ur Phencyclidine Scrn (Negative) Ur Amphetamines Screen (Negative) U Methamphetamines Scrn (Negative) Ur MDMA Scrn (Ecstasy) (Negative) U Benzodiazepines Scrn (Negative) Urine Cocaine Screen (Negative) U Marijuana (THC) Screen (Negative) Ethyl Alcohol < 10 ( - 10) mg/dL 03/27/19 Range/Units 16:50 WBC (4.5-11.0) X10^3/uL RBC (4.5-5.9) X10^6/uL Hgb (13.5-17.5) g/dL Hct (41-53) % MCV (80-100) fL MCH (26-34) PG MCHC (30-36) % RDW (11.6-14.8) % Plt Count (150-400) X10^3/uL Neut % (Auto) (50-75) % Lymph % (Auto) (25-40) % [place] % (Auto) (3-14) % Eos % (Auto) (2-4) % Baso % (Auto) (0-2) % Neut # (Auto) (5295-9961) /uL Lymph # (Auto) (5630-8137) /uL [place] # (Auto) (0-900) /uL Eos # (Auto) (0-450) /uL Baso # (Auto) (0-100) /uL Sodium (137-145) mmol/L Potassium (3.4-5.1) mmol/L Chloride (98-107) mmol/L Carbon Dioxide (22-32) mmol/L BUN (9-20) mg/dL Creatinine (0.66-1.25) mg/dL Estimated GFR (>60) mL/min BUN/Creatinine Ratio (6-22) Glucose (70-100) mg/dL Calcium (8.4-10.2) mg/dL Total Bilirubin (0.2-1.3) mg/dL AST (17-59) IU/L ALT (<50) IU/L Alkaline Phosphatase (38-126) U/L Total Protein (6.3-8.2) g/dL Albumin (3.5-5.0) g/dL Globulin (1.7-4.1) g/dL Albumin/Globulin Ratio (1.0-2.8) TSH (0.47-4.68) uIU/mL Salicylates (<20) mg/dL U Opiates 300ng/mL cut Negative (Negative) Ur Oxycodone Screen Negative (Negative) Urine Methadone Screen Negative (Negative) Acetaminophen (10-30) ug/mL Ur Barbiturates Screen Negative (Negative) U Tricyclic Antidepress Negative (Negative) Ur Phencyclidine Scrn Negative (Negative) Ur Amphetamines Screen Negative (Negative) U Methamphetamines Scrn Negative (Negative) Ur MDMA Scrn (Ecstasy) Negative (Negative) U Benzodiazepines Scrn Negative (Negative) Urine Cocaine Screen Negative (Negative) U Marijuana (THC) Screen Negative (Negative) Ethyl Alcohol ( - 10) mg/dL Urine Dip Bedside Urine Glucose Negative Bedside Urine Bilirubin - Negative Bedside Urine Ketone - Negative Urine Specific [place] 1.015 Bedside Urine Occult Blood - Negative Bedside Urine pH 6.0 Bedside Urine Protein - Negative Bedside Urine Urobilinogen - Negative Bedside Urine Nitrite - Negative Bedside Urine Leukocytes - Negative Esterase Discharge Plan Departure Patient Disposition: Home Clinical Impression: Suicidal ideation Discharge Date/Time: 03/27/19 18:07 Instructions: DI for Depression -- Adult, DI for Suicidal Ideation-Adult Activity Restrictions/Additional Instructions: Please remember your safety plan. Jose Roberto is to spend the night with you. If you feel suicidal, please follow your safety plan and speak with Jose Roberto. We have also given you crisis hotline information, see you can call them. Please come back to the emergency department if you have any acute suicidal thoughts, plans to hurt yourself or any acute concerns Please go to your counseling appointment at 10:00 a.m. tomorrow. Please follow-up with primary care provider as well. Prescriptions: No Action acetaminophen [Tylenol] 325 mg Tablet 650 mg PO Q4-6H PRN (Reason: pain) RF: 0 melatonin 3 mg Tablet 3 mg PO BEDTIME PRN (Reason: Sleep) RF: 0 Referrals: [facility] [Provider Group]
--- NOTE | 2019-03-27 14:34 | PC.NURSE ---
Upon interviewing pt, He had some suicidal thoughts this morning while at work. Pt states he [place] about [place]. I asked pt if he would act on these thoughts and he states that he would not act upon them because he does want to live. Pt states he feels he is being jerked around by the . States he feels that he needs to get out or these thoughts won't stop. He went to [facility] and that helped him 4 weeks ago but after getting back to [facility] he feels they are not caring about him and that he is not getting the care and help that he needs. Sts his mental health provider agrees that he needs to get out of the but they are waiting for the CO to get involved. Pt agrees to safety contract while here in the ED and states he really does not want to hurt himself and knows that he needs to get out of the .
[2019-03-27 15:02] LABS: Add Manual Diff / Slide Review NO; Basophils Absolute Auto 0 /uL (0-100); Basophils Percent Auto 0.9 % (0-2); Eosinophils Absolute Auto 200 /uL (0-450); Eosinophils Percent Auto 3.2 % (2-4); Hematocrit 45.2 % (41-53); Hemoglobin 15.8 g/dL (13.5-17.5); Lymphocytes Absolute Auto 2200 /uL (1100-4500); Lymphocytes Percent Auto 41.7 % (25-40); Mean Corpuscular Hemoglobin 28.1 PG (26-34); Mean Corpuscular Volume 80.3 fL (80-100); Monocytes Absolute Auto 500 /uL (0-900); Monocytes Percent Auto 8.8 % (3-14); Neutrophils Absolute Auto 2400 /uL (1500-7000); Neutrophils Percent Auto 45.4 % (50-75); Platelet Count 265 X10^3/uL (150-400); Red Blood Cell Count 5.63 X10^6/uL (4.5-5.9); White Blood Cell Count 5.2 X10^3/uL (4.5-11.0)
--- NOTE | 2019-03-27 15:13 | PC.NURSE ---
RIBBON INKER at bedside.
[2019-03-27 15:17] LABS: Acetaminophen < 10 ug/mL (10-30); Alanine Aminotransferase 59 IU/L (<50); Albumin 4.9 g/dL (3.5-5.0); Albumin Globulin Ratio 1.4 (1.0-2.8); Alkaline Phosphatase 83 U/L (38-126); Aspartate Aminotransferase 40 IU/L (17-59); Bilirubin Total 0.5 mg/dL (0.2-1.3); Blood Urea Nitrogen 12 mg/dL (9-20); Calcium 10.2 mg/dL (8.4-10.2); Carbon Dioxide 29 mmol/L (22-32); Chloride 101 mmol/L (98-107); Estimated Glomerular Filt Rate > 60.0 mL/min (>60); Ethanol (ETOH) < 10 mg/dL; Globulin 3.6 g/dL (1.7-4.1); Glucose 88 mg/dL (70-100); HEMOLYSIS < 15 (0-50); Potassium 4.1 mmol/L (3.4-5.1); Salicylate < 1.0 mg/dL (<20); Sodium 140 mmol/L (137-145); Total Protein 8.5 g/dL (6.3-8.2)
[2019-03-27 15:58] LABS: Thyroid Stimulating Hormone 3.16 uIU/mL (0.47-4.68)
--- NOTE | 2019-03-27 16:00 | CM.SWNOTE ---
CM/library services coordinator note: EMR reviewed: Patient is a 23 yr old male who presented to the ED with S.I. Patients was laying down calmly when CM/RN met with patient at the bedside. Patient appeared well groomed and was alert and oriented x3. CM/RN explained role. CM/RN spoke with patient about feeling suicidal and patient stated he doesn't feel that way all the time. Patient stated that those feelings come and go almost like a wave. Patients [place] but [place]. When asked if he was feeling Suicidal currently patient said no. Patient told CM/RN he was feeling better he just received good news from his command and it was helping with the depressed feelings. I: Prime and self pay Plan: CM/RN spoke with patients ED care provider CONCEPCIÓN Logan. Discussed patients and was determined due to the fact that patient is not currently feeling Suicidal, and has an appointment set up with [facility] behavioral health clinic tomorrow at 10am. patient can go home with safety plan in place vs voluntary inpatient treatment. when discussed with patient he was relieved by this idea and stated I doesn't feel like I need to go to inpatient treatment. I just feels like I needs help with some anti-depressant medication. CM will let ED provider know and work on safety planning. Nita Arboleda RN. CONFIGURATION MANAGEMENT ADMINISTRATOR - Occupational Physician Assessment CONFIGURATION MANAGEMENT ADMINISTRATOR - Occupational Physician Assessment Start: 03/27/19 15:40 Freq: Status: Active Protocol: Document 03/27/19 15:40 HS (Rec: 03/27/19 16:00 [email or web address]) CONFIGURATION MANAGEMENT ADMINISTRATOR/Occupational Physician Assessment Time Spent with Patient Start date 03/27/19 Visit Start Time 14:45 End date 03/27/19 Visit End Time 15:30 Total time Care Management spent on 120 min patient visit-in minutes Mental Health Screening Include Onset, Duration, Intensity Presenting Problem Patient presented to the ED with feelings of SI. Patient stated he was feeling depressed and sad and [place]. Patient has been struggling with Depression off and on for over a year. 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 Patient is currently going through an administrative separation from the [employer] and is struggling with the length of this process. Patient was previously admitted for Mental health treatment at [facility] in February 2019 and was suppose to go on leave home to [place] to see his family at the beginning of March 2019 but his Leave was denied post audrey d/c for safety purposes and this was very hard on patient since he is close with his family. Patient stated he has been struggling since he Moved to [place] with his depression and is having a difficult time fitting in at work. Current Behavioral Health Provider(s) Patient currently see's mental Include Facility, Provider, Ph. # health provider at the Behavioral health clinic at [facility]. Psych. Hx Mental Health and Chemical one previous inpatient Dependency psychiatric stay for S.I. has no Chemical dependency HX Psychiatric Hospitalizations (date(s)/ Patient went to inpatient location) treatment for mental health at [facility] in February 2019 Support System(s) Patient has a very supportive family in [place] but is struggling here with no family support here. Patient states he does have a few friends who have helped with distracting him during previous depression experienced in the past. School/Work patient is currently in the [employer]. Legal Concerns Legal Matters - Outstanding Issues Patient is currently going through an Administrative separation from the [facility] Mental Status Orientation (Person/Place/Time) Patient was alert and oriented x3 during CM/ RN visit. Affect Patients affect was sad. Thought Content - Specify/Describe Patient has thoughts of Obsessions, Delusions, Hallucinations [place] when he has his episodes of S.I. In the past patient stated he has felt like he should drive his car into buildings or off cliffs or Over dose on medications that were around his house. Thought Processes (Gmurbkg-Hazayzpv-Xjfr Logical and coherent Fncoqjxi-Mdmmcvrq-Tfwlvnfabk- Qeqqszaucyakuf-Ysbfrbd-Cxifezvgiflt- Thought Blocking) Speech (Ebcnaz-Oznn-Cfexjyq-Rapid-Soft- Slow to normal Loud-Pressured) Motor (Ipbxgl-Jdxjtxsvl-Kxux-Other) normal Insight (Present-Partially Present- present Impaired) Memory (Aglouhusl-Xkcqjd-Dbippt, intact Impaired-Intact) Concentration (Intact-Impaired) intact Attention (Intact-Impaired) intact Behavior (Appropriate-Inappropriate) appropriate Risk Assessment Suicidal Ideation (Plan) Yes: [place] to [place] Homicidal Ideation (Plan) No Intervention Intervention Patient has a Mental health appointment tomorrow with [facility] at [facility]. When asked if patient was open to going to inpatient treatment again? patient stated he was but doesn't feel it is necessary since he is no longer having thoughts of harming himself. Patient stated he received a call from his command letting him know that the Commanding Officer signed in agreement to allow patients Administrative separation- which is what the patient wants. Patient stated after hearing this I am feeling better.
[2019-03-27 17:06] LABS: UR Morphine/Opiate cutoff 300 Negative (Negative); Ur Creatinine Normal (Normal); Ur Specific Gravity Normal (Normal); Urine Amphetamines Negative (Negative); Urine Barbiturates Negative (Negative); Urine Benzodiazepines Negative (Negative); Urine Cocaine Negative (Negative); Urine MDMA Negative (Negative); Urine Methadone Negative (Negative); Urine Methamphetamines Negative (Negative); Urine Oxycodone Negative (Negative); Urine Phencyclidine Negative (Negative); Urine Tetrahydrocannabinol Negative (Negative); Urine Tricyclic Antidepressant Negative (Negative); Urine pH Normal (Normal)
[2019-03-27 17:29] VITALS: BP 138/91; PULSE 71; RESP 16; O2SAT 98
== END 2019-03-27 18:07 | disposition home or self-care (01) ==
PROVIDERS: Emergency Provider Nurse Practitioner Family
DX: R45.851 Suicidal ideations (principal)
CPT/HCPCS: 36415; 80053; 80305; 80320; 80329; 81003; 84443; 85025; 99284; G0480